=== PATIENT | female | born 1945 | race Caucasian/White ===

== ENCOUNTER → 2017-03-26 | Outpatient (CLI) | payer MEDICARE, OTHER ==
[~2017-03-26] MED LIST: ASPIRIN PO; ASPIRIN81 M1 PO; ASPIRIN81 M2 PO; BETIMOL5 ML OP; BIOTIN2500 MCG; CALCIUM 500 + D1 TAB PO; CALTRATE 600+D PO; CENTRUM SILVER PO; CENTRUM SILVER1 EAC1 PO; CENTRUM SILVER1 EAC3 PO; LIPITOR20 MG PO; NORVASC PO; NORVASC10 MG PO; OSTEO BI FLEX; OSTEO BI-FLEX1 EAC2 PO; OSTEOBIFLEX PO; PLENDIL5 M1 PO; PLENDIL5 MG PO; SIMVASTATIN40 MG PO; TIMOPTIC2.5 ML OP; TIMOPTIC5 ML OU; XALATAN OP; XALATAN OU; ZOCOR PO; ZYRTEC10 M1 PO
--- NOTE | ~2017-03-26 | BD1 ---
[facility] A Service of [facility] & [facility] RADIOLOGY TEXT RESULTS PATIENT: JUAN NUÑEZ LOCATION: [facility] : 43 UNIT #: [id number] AGE: [address]: Aydin Abarca MD SEX: F ORDER DR: [id number] [facility] [address] [place], [place] [address] [id number] O MR#: [id number] Acc #: [id number] NAME: JUAN NUÑEZ : 1945 SEX: F STUDY DATE/TIME: 03/26/2017 11:17 UNIT: [facility] ROOM: STUDY DESCRIPTION: BD Dexa Bone Dens 1+ Site Attending Physician: Aydin Abarca Jr., M.D. Referring Physician: Aydin Abarca Jr., M.D. Ordering Physician: Aydin Abarca Jr., M.D. Primary Care Physician: Aydin Abarca Jr., M.D. MEDICAL IMAGING REPORT This report is preliminary unless electronic signature is present EXAM DXA scan, 03/26/17. HISTORY Status post menopause with no hormone replacement therapy. Osteopenia. Hysterectomy at age 37. Family history of breast carcinoma in grandmother. Hypertension with blood pressure medication. Fracture of nose in last 10 years. FINDINGS Bone mineral density in the lumbar spine from L1 through L4 is 0.794 g/cm2 which is 2.3 standard deviations below the mean when compared to the young adult reference population which is characteristic of osteopenia. This is 0.1 standard deviations below the mean when compared to the age-matched population. Compared with 10/18/12, there has been a decrease in bone mineral density in the lumbar spine of 5.1%. Bone mineral density in the left forearm was 0.546 g/cm2 which is 0.4 standard deviations below the mean when compared to the young adult reference population which is within the range of normal. This is 2 standard deviations above the mean when compared to the age-matched population. Compared with 10/18/2012, there has been a decrease in bone mineral density in the left forearm of 3.5%. IMPRESSION Bone mineral density in the lumbar spine characteristic of osteopenia and within the left forearm within the range of normal. Compared with 10/18/12, there has been a decrease in bone mineral density in the lumbar spine and the left forearm. Dictated by... Bear Wilcox M.D. THIS IS AN ELECTRONICALLY VERIFIED REPORT Bear Wilcox M.D. at 03/27/2017 8:27 AM [facility] A Service of [facility] & [facility] RADIOLOGY TEXT RESULTS PATIENT: JUAN NUÑEZ LOCATION: [facility] #: [id number] : 43 UNIT #: [id number] AGE: [address]: Aydin Abarca MD SEX: F ORDER DR: DAVID/bea TD: 03/26/2017 15:38 JOB #: [id number] MEDICAL IMAGING REPORT Page 1 of 1 COPY
--- NOTE | ~2017-03-26 | MY29 ---
[facility] A Service of [facility] & [facility] RADIOLOGY TEXT RESULTS PATIENT: JUAN NUÑEZ LOCATION: [facility] : 43 UNIT #: [id number] AGE: [address]: Aydin Abarca MD SEX: F ORDER DR: [id number] [facility] [address] [place] [address] [place], [place] [address] [id number] O MR#: [id number] Acc #: [id number] NAME: JUAN NUÑEZ : 1945 SEX: F STUDY DATE/TIME: 03/26/2017 11:13 UNIT: [facility] ROOM: STUDY DESCRIPTION: [facility] SCREENING W/ CAD BILAT Attending Physician: Aydin Abarca Jr., M.D. Referring Physician: Aydin Abarca Jr., M.D. Ordering Physician: Aydin Abarca Jr., M.D. Primary Care Physician: Aydin Abarca Jr., M.D. MEDICAL IMAGING REPORT This report is preliminary unless electronic signature is present EXAMINATION Bilateral digital screening mammogram with CAD. DATE 03/26/2017 HISTORY 71-year-old female with family history of breast cancer in a grandmother. No personal history of breast cancer or current complaints. COMPARISON Bilateral screening mammogram, 08/14/2015, 12/19/2013. FINDINGS CC and MLO views were obtained of each breast utilizing digital technique and reviewed with an FDA-approved CAD device. Scattered fibroglandular densities are present bilaterally. Asymmetric density in the upper outer left breast central third, unchanged since 2013, in keeping with benign finding. Fibronodular density in the superior left breast anterior third on the MLO view, unchanged from 2014, in keeping with a benign finding. No new or suspicious nodule is identified. There is no architectural distortion or suspicious clustered microcalcification. No abnormal skin thickening or nipple retraction is evident. IMPRESSION BIRADS 2. Benign findings. Routine bilateral screening mammogram is recommended in one year. Patients over the age of 40 are entered into a reminder system with target due date for the next mammogram. A result letter will also be sent to the patient. [facility] A Service of [facility] & [facility] RADIOLOGY TEXT RESULTS PATIENT: JUAN NUÑEZ LOCATION: [facility] : 43 UNIT #: [id number] AGE: [address]: Aydin Abarca MD SEX: F ORDER DR: BIRADS: 2 Benign findings. Dictated by... Alyssia Braga M.D. THIS IS AN ELECTRONICALLY VERIFIED REPORT Alyssia Braga M.D. at 03/27/2017 8:32 AM BRINA/bea TD: 03/26/2017 16:49 JOB #: [id number] MEDICAL IMAGING REPORT Page 1 of 1 COPY
== END | disposition home or self-care (01) ==
LOC: CWCC 10:45
DX: Z13.820 Encounter for screening for osteoporosis (principal); Z12.31 Encounter for screening mammogram for malignant neoplasm of breast; Z80.3 Family history of malignant neoplasm of breast; Z78.0 Asymptomatic menopausal state; M85.88 Other specified disorders of bone density and structure, other site
CPT/HCPCS: 77080; G0202